=== PATIENT | male | born 1975 | race Two or more races ===

== ENCOUNTER 2017-02-14 06:22 | Inpatient (IN) | payer BC, OTHER ==
[~2017-02-14] VITALS: Ht 177.8 cm; Wt 70.3 kg
[2017-02-14] MEDS ORDERED: diphenhydrAMINE HCL 50 MG/ML VIAL IV ONE (06:30)
[2017-02-14] MEDS ORDERED: IV NS 0.9% 1,000 ML BAG IV ONE (06:30)
[2017-02-14] MEDS ORDERED: methylPREDNISolone SOD SUCC 125 MG/2ML VIAL IV ONE (06:30)
[2017-02-14] MEDS ORDERED: EPINEPHRINE (1:1000) MDV 30 MG/30ML VIAL SUBCUT ONE (06:30)
--- NOTE | 2017-02-14 06:30 | NUR ---
[facility] HOME FOR SYNCOPAL EPISODE WHILE ON TOILET, GIRLFRIEND CALLED 911 HYPOTENSIVE SBP 60S W/ BG 145 IN FIELD, GIVEN NS 1000 IVB. PT AOX3 RR EVEN AND UNLABORED. NO SOB NOTED. NAD NOTED. NO NVD AT THIS TIME. PT GOWNED AND PLACED ON MONITOR. DR. NERI AT BEDSIDE FOR EVAL.
--- NOTE | 2017-02-14 06:31 | NUR ---
PER RA PLACED IV ON RIGHT AC 18G
[2017-02-14] MEDS ORDERED: methylPREDNISolone SOD SUCC 125 MG/2ML VIAL ONE (06:35)
[2017-02-14] MEDS ORDERED: diphenhydrAMINE HCL 50 MG/ML VIAL ONE (06:35)
[2017-02-14] MEDS ORDERED: EPINEPHRINE (1:1000) 1 MG/ML AMPUL ONE (06:36)
--- NOTE | 2017-02-14 06:50 | NUR ---
LAB AT BEDSIDE FOR BLOOD DRAW.
[2017-02-14 06:58] LABS: BASOPHILS % (AUTO) 0.1 % (0.0-2.0); EOSINOPHILS # (AUTO) 0.1 /CMM (0.0-0.7); EOSINOPHILS % (AUTO) 0.6 % (0.0-6.0); HEMATOCRIT 44 % (39-51); HEMOGLOBIN 14.9 g/dL (13.5-17.5); LYMPHOCYTES # (AUTO) 4.7 /CMM (0.8-4.8); LYMPHOCYTES % (AUTO) 36.3 % (20.0-44.0); MEAN CORPUSCULAR HEMOGLOBIN 31 PG (26.0-33.0); MEAN CORPUSCULAR HGB CONC 34 g/dl (31.0-36.0); MEAN CORPUSCULAR VOLUME 91 fL (80-96); MONOCYTES # (AUTO) 0.6 /CMM (0.1-1.30); MONOCYTES % (AUTO) 4.2 % (2.0-12.0); NEUTROPHILS # (AUTO) 7.7 /CMM (1.8-8.9); NEUTROPHILS % (AUTO) 58.8 % (43.0-81.0); PLATELET COUNT (AUTO) 311 /CMM (150-450); RDW COEFFICIENT OF VARIATION 11.9 (11.5-15.0); RED BLOOD CELL COUNT(AUTO) 4.77 MIL/uL (4.5-6.0)
--- NOTE | 2017-02-14 06:58 | NUR ---
GIRLFRIEND AT BEDSIDE.
[2017-02-14] MEDS ORDERED: IV NS 0.9% 1,000 ML IV ONE (07:00)
[2017-02-14 07:08] LABS: CALCIUM, SERUM 8.7 mg/dL (8.5-10.1); CREATININE 1.3 mg/dL (0.6-1.3); POTASSIUM 3.4 mmol/L (3.5-5.1)
[2017-02-14 07:14] LABS: ALBUMIN 3.2 g/dL (3.4-5.0); BILIRUBIN,DIRECT 0.1 mg/dL (0.0-0.2); BILIRUBIN,TOTAL 0.7 mg/dL (0.2-1.0); TOTAL PROTEIN, SERUM 5.7 g/dL (6.4-8.2)
--- NOTE | 2017-02-14 07:26 | NUR ---
REPORT GIVEN TO FANY NEAL FOR CHRISTINA.
--- NOTE | 2017-02-14 07:26 | NUR ---
DR. NERI AT BEDSIDE SPEAKING TO PT REGARDING POC
--- NOTE | 2017-02-14 07:33 | NUR ---
EKG IN PROGRESS
--- NOTE | 2017-02-14 07:54 | NUR ---
PAGED [facility] AGENT FOR CHRISTINA BED
--- NOTE | 2017-02-14 09:08 | NUR ---
PAGED [facility] --- VARNISH COOKER IS DR NAGY
[2017-02-14] MEDS ORDERED: MAG HYDROX/AL HYDROX/SIMETH 30 ML UDC PO PRN (10:30)
[2017-02-14] MEDS ORDERED: ZOLPIDEM TARTRATE 5 MG TABLET PO PRN (10:30)
[2017-02-14] MEDS ORDERED: POTASSIUM CHLORIDE 20 MEQ TAB.PRT.SR PO ONE ×2 (10:30→10:50)
[2017-02-14] MEDS ORDERED: ACETAMINOPHEN 325 MG TABLET PO PRN (10:30)
[2017-02-14] MEDS ORDERED: ALPRAZOLAM 0.25 MG TABLET PO PRN (10:30)
[2017-02-14] MEDS ORDERED: HYDROCODONE/APAP 5/325MG 1 EACH TABLET PO PRN (10:30)
[2017-02-14] MEDS ORDERED: diphenhydrAMINE HCL 50 MG/ML VIAL IV PRN (10:30)
[2017-02-14] MEDS ORDERED: Z GUARD REMEDY 2 OZ OINT TP PRN (10:30)
[2017-02-14] MEDS ORDERED: ONDANSETRON HCL/PF 4 MG/2 ML VIAL IVP PRN (10:30)
[2017-02-14] MEDS ORDERED: MAGNESIUM HYDROXIDE 30 ML UDC PO PRN (10:30)
--- NOTE | 2017-02-14 11:46 | NUR ---
REPORT GIVEN TO FANY ESCOBEDO FOR CONTINUITY OF CARE
[2017-02-14 12:55] VITALS: BP_SYST 115; BP_SYST 116; BP_DIAS 68; BP_DIAS 79
--- NOTE | 2017-02-14 12:55 | NUR ---
NIMA JOHNSON FROM ER.
[2017-02-14] MEDS: IV NS 0.9% 1,000 ML IV PRN ×2 (14:59→21:33)
[2017-02-14] MEDS: methylPREDNISolone SOD SUCC 125 MG/2ML VIAL IV SCH ×2 (15:00→18:29)
[2017-02-14 16:00] VITALS: BP 103/64
--- NOTE | 2017-02-14 17:45 | NUR ---
RN CLOSING NOTES PT AAO4. SLEEPING. EASILY AROUSED. DENIES DIZZINESS. VSS. DENIES PURITIS. NO SOB. PT STABLE. CALL LIGHT IN REACH. IVF NS @150ML/HR INFUSING INTO RAC 20G. VOIDS. LOOSE STOOL X 1. BED IN LOW LOCKED POSITION. WILL ENDORSE TO MUKESH SOARES.
[2017-02-14 20:00] VITALS: BP_SYST 103; BP_SYST 141; BP_DIAS 62; BP_DIAS 69
--- NOTE | 2017-02-14 20:40 | NUR ---
received pt from day shift, s/p anaphylactic reaction, a/o x4, follows commands, SR, RA sat well, lungs clear no edema, v/s stable, no pain, no s/s of allergic reaction noted, pt turns and repositions by himself. specimens for stool and urine sent.
[2017-02-14 21:01] LABS: APPEARANCE,URINE CLEAR (CLEAR); BILIRUBIN,URINE NEGATIVE (NEGATIVE); BLOOD, URINE NEGATIVE Ery/uL (NEGATIVE); COLOR,URINE YELLOW (YELLOW); KETONES,URINE NEGATIVE (NEGATIVE); LEUKOCYTE ESTERASE ,URINE NEGATIVE (NEGATIVE); NITRITE, URINE NEGATIVE (NEGATIVE); PROTEIN,URINE NEGATIVE (NEGATIVE); UGLUCOSE NEGATIVE (NEGATIVE); UROBILINOGEN,URINE 0.2 EU/dL (0.2)
[2017-02-14] MEDS ORDERED: FAMOTIDINE/PF INJ 20 MG/2 ML VIAL IV ONE (22:05)
[2017-02-14] MEDS: FAMOTIDINE/PF INJ 20 MG/2 ML VIAL IV SCH (22:11)
[2017-02-15] VITALS: BP 95/52
--- NOTE | 2017-02-15 00:24 | NUR ---
pt is resting in the bed, alert, v/s stable, no pain.
[2017-02-15 04:00] VITALS: BP 99/53
--- NOTE | 2017-02-15 04:16 | NUR ---
pt is resting in the bed, a/o x4, SR, v/s stable, no pain, pt cleaned and changed.
[2017-02-15] MEDS: IV NS 0.9% 1,000 ML IV PRN ×2 (04:56→19:17)
[2017-02-15 07:15] LABS: EOSINOPHILS # (AUTO) 0.1 /CMM (0.0-0.7); EOSINOPHILS % (AUTO) 0.3 % (0.0-6.0); HEMATOCRIT 36 % (39-51); HEMOGLOBIN 12.5 g/dL (13.5-17.5); LYMPHOCYTES # (AUTO) 0.9 /CMM (0.8-4.8); LYMPHOCYTES % (AUTO) 5.1 % (20.0-44.0); MEAN CORPUSCULAR HEMOGLOBIN 31 PG (26.0-33.0); MEAN CORPUSCULAR HGB CONC 34 g/dl (31.0-36.0); MEAN CORPUSCULAR VOLUME 91 fL (80-96); MONOCYTES # (AUTO) 0.7 /CMM (0.1-1.30); MONOCYTES % (AUTO) 4.2 % (2.0-12.0); NEUTROPHILS # (AUTO) 16.2 /CMM (1.8-8.9); NEUTROPHILS % (AUTO) 90.4 % (43.0-81.0); PLATELET COUNT (AUTO) 226 /CMM (150-450); RDW COEFFICIENT OF VARIATION 12.1 (11.5-15.0); RED BLOOD CELL COUNT(AUTO) 3.99 MIL/uL (4.5-6.0); WHITE BLOOD COUNT (AUTO) 17.9 K/uL (4.3-11.0)
[2017-02-15 07:29] LABS: ALBUMIN 3.2 g/dL (3.4-5.0); BILIRUBIN,DIRECT 0.1 mg/dL (0.0-0.2); BILIRUBIN,TOTAL 0.5 mg/dL (0.2-1.0); CALCIUM, SERUM 8.7 mg/dL (8.5-10.1); CREATININE 0.9 mg/dL (0.6-1.3); PHOSPHORUS 3.2 mg/dL (2.5-4.9); POTASSIUM 4.2 mmol/L (3.5-5.1); TOTAL PROTEIN, SERUM 5.9 g/dL (6.4-8.2)
[2017-02-15 07:33] LABS: INR 1.08 (0.87-1.13); PROTHROMBIN TIME 11.2 SECS (9.5-12.7)
[2017-02-15 07:36] LABS: THYROID STIMULATING HORMONE 0.761 uIU/mL (0.358-3.74)
[2017-02-15 08:00] VITALS: BP_SYST 157; BP_SYST 94; BP_DIAS 50; BP_DIAS 95
--- NOTE | 2017-02-15 08:00 | NUR ---
PT AND FAMILY AT BEDSIDE. VSS, DENIES SOB DENIES SIGNS AND SYMPTOMS ALLERGIC REACTION. PT STATES HE HAD ONE BM, NO BLOOD.
[2017-02-15] MEDS: FAMOTIDINE/PF INJ 20 MG/2 ML VIAL IV SCH ×2 (09:17→21:13)
[2017-02-15] MEDS: methylPREDNISolone SOD SUCC 125 MG/2ML VIAL IV SCH (09:17)
[2017-02-15 12:00] VITALS: BP 106/60
--- NOTE | 2017-02-15 12:00 | NUR ---
PT SEEN BY DR SWARTZ.. ABATING EEG R/O ATYPICAL SEIZURE.
[2017-02-15 16:00] VITALS: BP 111/70
--- NOTE | 2017-02-15 17:00 | NUR ---
EEG COMPLETED, TO CT SCAN BY WHEELCHAIR.
--- NOTE | 2017-02-15 17:30 | NUR ---
DR NAGY NOTIFIED THAT DR RAMIREZ WOULD LIKE TO REPORT ABD. CT FINDINGS.
[2017-02-15] MEDS ORDERED: PIPERACILLIN /TAZOBACTAM 4.5 G in IV D5W 50 ML IV SCH (18:30)
[2017-02-15] MEDS: ZOSYN IVPB 3.375 G in IV D5W 50ml IV SCH (19:17)
[2017-02-15] MEDS: FOLIC ACID 1 MG TABLET PO SCH (19:17)
[2017-02-15 20:00] VITALS: BP 103/60
--- NOTE | 2017-02-15 20:00 | NUR ---
CHRISTINA RN NOTES RECEIVED PTS ON BED AWAKE ALERT AND VERBALLY RESPONSIVE, ABLE TO MAKE NEEDS KNOWN.ON TELE SR ON THE MONITOR , NO SOB NO DISTRESS NOTED NO C/O OF PAIN NOTED, V/S STABLE AFEBRILE FAMILY AT BEDSIDE UPDATED WITH PTS CURRENT CONDITION , ALL NEEDS ATTENDED TOO CALL LIGHT WITHIN REACH ALL DUE MEDS GIVEN ORDERED. WITH RAC G#18 AT NS AT 75CC/HR INFUSING WELL .KEPT PTS CLEAN DRY AND COMFORTABLE.
--- NOTE | 2017-02-15 20:10 | NUR ---
yoan rn notes seen and examine by dr shena calvin , says no need for surgery just to continue on antibiotic ,will continue to monitor pts.
[2017-02-16] VITALS: BP 109/56
[2017-02-16] MEDS: ZOSYN IVPB 3.375 G in IV D5W 50ml IV SCH ×2 (02:14→08:22)
[2017-02-16 04:00] VITALS: BP 106/65
--- NOTE | 2017-02-16 06:53 | NUR ---
yoan rn notes pts on bed still sleeping , no sob no distress noted .v/s stable , no significant change noted,remain on ivf ns at 75cc/hr well tolerated .will endorse to rn day shift for continuity of care.
[2017-02-16 07:34] LABS: BASOPHILS % (AUTO) 0.1 % (0.0-2.0); EOSINOPHILS % (AUTO) 0.1 % (0.0-6.0); HEMATOCRIT 37 % (39-51); HEMOGLOBIN 12.3 g/dL (13.5-17.5); LYMPHOCYTES # (AUTO) 1.9 /CMM (0.8-4.8); LYMPHOCYTES % (AUTO) 13.7 % (20.0-44.0); MEAN CORPUSCULAR HEMOGLOBIN 31 PG (26.0-33.0); MEAN CORPUSCULAR HGB CONC 33 g/dl (31.0-36.0); MEAN CORPUSCULAR VOLUME 93 fL (80-96); MONOCYTES # (AUTO) 0.8 /CMM (0.1-1.30); MONOCYTES % (AUTO) 5.6 % (2.0-12.0); NEUTROPHILS % (AUTO) 80.5 % (43.0-81.0); PLATELET COUNT (AUTO) 203 /CMM (150-450); RDW COEFFICIENT OF VARIATION 12.1 (11.5-15.0); RED BLOOD CELL COUNT(AUTO) 3.93 MIL/uL (4.5-6.0); WHITE BLOOD COUNT (AUTO) 13.6 K/uL (4.3-11.0)
--- NOTE | 2017-02-16 07:37 | NUR ---
RN NOTES RECEIVED PT IN STABLE CONDITION, A&0X3, ON ROOM AIR NO SOB OR DISTRESS, SINUS BOBBI ON THE TELE MONITOR HR 58. RAC 18G IVF AT 75ML/HR. NO COMPLAINTS OF PAIN. BED LOCKED AND IN LOWEST POSITION, CALL LIGHT WITHIN REACH, SIDE RAILS UPX3, WILL CONT TO MONITOR.
[2017-02-16 07:50] LABS: CALCIUM, SERUM 8.4 mg/dL (8.5-10.1); MAGNESIUM 2.1 mg/dL (1.8-2.4); POTASSIUM 4.1 mmol/L (3.5-5.1)
[2017-02-16 08:00] VITALS: BP 103/65
[2017-02-16] MEDS: FAMOTIDINE/PF INJ 20 MG/2 ML VIAL IV SCH (08:22)
[2017-02-16] MEDS: FOLIC ACID 1 MG TABLET PO SCH (08:22)
[2017-02-16] MEDS ORDERED: predniSONE 20 MG TABLET PO SCH (09:00)
[2017-02-16] MEDS: IV NS 0.9% 1,000 ML IV PRN (09:26)
[2017-02-16] MEDS ORDERED: EPIN0.3A3 IM (11:10)
[2017-02-16] MEDS ORDERED: AMOX-430 PO (11:10)
[2017-02-16] MEDS ORDERED: METH4TAB17 PO (11:10)
[2017-02-16 11:45] LABS: ALBUMIN 3.2 g/dL (3.4-5.0); BILIRUBIN,DIRECT 0.1 mg/dL (0.0-0.2); BILIRUBIN,TOTAL 0.3 mg/dL (0.2-1.0); TOTAL PROTEIN, SERUM 5.9 g/dL (6.4-8.2)
--- NOTE | 2017-02-16 12:08 | NUR ---
RN NOTES PT DISCHARGED IN STABLE CONDITION IN WHEELCHAIR WITH GIRLFRIEND.
== END 2017-02-16 12:08 | disposition home or self-care (01) | DRG 916 ==
LOC: ER 06:23 → TELE-TD 11:23
PROVIDERS: ADMIT Internal Medicine; ATTEND Internal Medicine
DX: T78.2XXA Anaphylactic shock, unspecified, initial encounter (principal); R56.9 Unspecified convulsions; E44.1 Mild protein-calorie malnutrition; K35.80 Unspecified acute appendicitis; E88.09 Other disorders of plasma-protein metabolism, not elsewhere classified; E87.6 Hypokalemia; E53.8 Deficiency of other specified B group vitamins; R19.7 Diarrhea, unspecified; F41.9 Anxiety disorder, unspecified
CPT/HCPCS: 36415; 70450-TC; 80048-TC; 80061-TC; 80076-TC; 80305; 81000-TC; 82150-TC; 82272-TC; 82746; 83520; 83540-TC; 83605-TC; 83690-TC; 83735-TC; 84100-TC; 84443-TC; 85025-TC; 85610-TC; 85652-TC; 87081-TC; 95819-TC; A4606; J0171; J1200; J2543; J2930; J3490; J7030; J7060; Z7610

== ENCOUNTER 2017-03-01 12:06 | Outpatient (CLI) | payer BC ==
[~2017-03-01] VITALS: Ht 177.8 cm; Wt 73.9 kg
[2017-03-01 12:05] VITALS: BP 135/78
[~2017-03-01 12:06] MED LIST: AMOX-430 PO; EPIN0.3A3 IM; METH4TAB17 PO
== END 2017-03-01 23:59 | disposition home or self-care (01) ==
LOC: MSC 12:06
PROVIDERS: ATTEND Internal Medicine
DX: K35.80 Unspecified acute appendicitis (principal); E44.1 Mild protein-calorie malnutrition; F32.9 Major depressive disorder, single episode, unspecified; F41.9 Anxiety disorder, unspecified; Z79.899 Other long term (current) drug therapy